=== PATIENT | male | born 1950 | race Caucasian/White ===

== ENCOUNTER 2017-03-10 18:01 | Emergency (ER) | payer OTHER ==
--- NOTE | 2017-03-10 18:27 | CPEKG ---
Heart Rate: 95 RR Interval: 632 P-R Interval: 140 QRSD Interval: 80 QT Interval: 336 QTC Interval: 423 P Oxford: 66 QRS Oxford: -12 T Wave Oxford: 40 EKG Severity - NORMAL ECG - EKG Impression: SINUS RHYTHM Electronically Signed By: Jefry Sutherland 10-Mar-2017 20:51:56
[2017-03-10 18:43] LABS: % IMMATURE GRANULYOCYTES 0.4 % (0.0-1.1); ABSOLUTE IMMATURE GRANULOCYTES 0.03 10^3/uL (0.00-0.10); ADD DIFF? NO; ADD MORPH? NO; ADD SCAN? NO; ATYPICAL LYMPHOCYTE FLAG 0 (0-99); FRAGMENT RBC FLAG 10 (0-99); HEMATOCRIT 43.5 % (40.0-51.0); HEMOGLOBIN 14.7 g/dL (13.7-17.5); LEFT SHIFT FLG 10 (0-99); LIPEMIA HEMOLYSIS FLAG 90 (0-99); MEAN CELL HEMOGLOBIN 30.4 pg (27.9-34.1); MEAN CELL HEMOGLOBIN CONCENTR. 33.8 g/dL (32.4-36.7); MEAN CELL VOLUME 90.1 fL (81.5-99.8); MEAN PLATELET VOLUME 9.7 fL (8.7-11.7); PLATELET CLUMPS FLAG 10 (0-99); PLATELET COUNT 254 10^3/uL (150-400); RED BLOOD CELL COUNT 4.83 10^6/uL (4.40-6.38); RED CELL DISTRIBUTION WIDTH 13.7 % (11.5-15.2)
[2017-03-10] MEDS ORDERED: NS 1,000 ML IV ONE (18:52)
[2017-03-10] MEDS ORDERED: DEXAMETHASONE 10 MG/ML VIAL IVP ONE (18:52)
[2017-03-10] MEDS ORDERED: HYDROmorphONE/DILAUDID 1 MG/ML SYR IVP ONE (18:52)
[2017-03-10] MEDS ORDERED: METOCLOPRAMIDE 10 MG/2 ML VIAL IVP ONE (18:52)
[2017-03-10 18:53] LABS: ANION GAP 16 mEq/L (8-16); CALCIUM 9.7 mg/dL (8.5-10.4); CARBON DIOXIDE 20 mEq/l (22-31); CHLORIDE 100 mEq/L (97-110); CREATININE 1.3 mg/dL (0.7-1.3); GLOMERULAR FILTRATION RATE 55; GLUCOSE 91 mg/dL (70-100); SODIUM 136 mEq/L (134-144)
--- NOTE | 2017-03-10 18:55 | EDPHY ---
H & P Stated Complaint: 5 days of chest discomfort/rome/fever body aches/being tx for tooth infection Time Seen by Provider: 03/10/17 18:42 HPI/ROS: CHIEF COMPLAINT: Headache HISTORY OF PRESENT ILLNESS: The patient is a 66-year-old man with history of migraines who states that he setting a severe left-sided headache to the point where his scalp and hair hurt and or tingling. He has had several of these before although they are not very often. The last 1 presented with a facial as well and he was sent at [facility] as a stroke alert. He had a negative CT and MRI that time. He also complains of some pain in his right eye. No vision changes. No photophobia. He has been on amoxicillin for 3 days for left upper left lower dental infections which he thinks exacerbating his symptoms. He feels generally weak and has not been sleeping. He does not have any focal weakness or deficits. No chest pain or shortness of breath. No fevers. REVIEW OF SYSTEMS: Constitutional: denies: chills, fever, recent illness, recent injury EENTM: denies: blurred vision, double vision, nose congestion Respiratory: denies: cough, shortness of breath Cardiac: denies: chest pain, irregular heart rate, lightheadedness, palpitations Gastrointestinal/Abdominal: denies: abdominal pain, diarrhea, nausea, vomiting, blood streaked stools Genitourinary: denies: dysuria, frequency, hematuria, pain Musculoskeletal: denies: joint pain, muscle pain Skin: denies: lesions, rash, jaundice, bruising Neurological: See HPI Hematologic/Lymphatic: denies: blood clots, easy bleeding, easy bruising Immunologic/allergic: denies: HIV/AIDS, transplant EXAM: GENERAL: Well-appearing, well-nourished and in no acute distress. HEAD: Atraumatic, normocephalic. EYES: Pupils equal round and reactive to light, extraocular movements intact, sclera anicteric, conjunctiva are normal. ENT: TMs normal, nares patent, oropharynx clear without exudates. Moist mucous membranes. NECK: Normal range of motion, supple without lymphadenopathy or JVD. LUNGS: Breath sounds clear to auscultation bilaterally and equal. No wheezes rales or rhonchi. HEART: Regular rate and rhythm without murmurs, rubs or gallops. ABDOMEN: Soft, nontender, normoactive bowel sounds. No guarding, no rebound. No masses appreciated. BACK: No CVA tenderness, no spinal tenderness, step-offs or deformities EXTREMITIES: Normal range of motion, no pitting or edema. No clubbing or cyanosis. NEUROLOGICAL: Cranial nerves II through XII grossly intact. Normal speech, normal gait. 5/5 strength, normal movement in all extremities, normal sensation PSYCH: Normal mood, normal affect. SKIN: Warm, dry, normal turgor, no visible rashes or lesions. Source: Patient Exam Limitations: No limitations - Personal History Current Tetanus/Diphtheria Vaccine: Unsure - Medical/Surgical History Hx Asthma: No Hx Chronic Respiratory Disease: No Hx Diabetes: No Hx Cardiac Disease: No Hx Renal Disease: No Hx Cirrhosis: No Hx Alcoholism: No Hx HIV/AIDS: No Hx Splenectomy or Spleen Trauma: No Other PMH: migraines - Family History Significant Family History: No pertinent family hx - Social History Smoking Status: Never smoked Alcohol Use: Sober Drug Use: None Constitutional: Initial Vital Signs Temperature (C) 37.2 C 03/10/17 18:09 Heart Rate 94 03/10/17 18:09 Respiratory Rate 18 03/10/17 18:09 Blood Pressure 136/80 H 03/10/17 18:09 O2 Sat (%) 98 03/10/17 18:09 O2 Delivery Mode Room Air O2 (L/minute) 3 Allergies/Adverse Reactions: No Known Allergies Allergy (Unverified 03/10/17 18:19) Home Medications: Medication Instructions Recorded AMOXICILLIN 03/10/17 Metoclopramide [Reglan 10 mg tab 10 mg PO BID PRN #10 tab 03/10/17 (RX)] Medical Decision Making - Diagnostics EKG Interpretation: An EKG obtained and was read and documented in trace view. Please see trace view for full reading and report. Sinus rhythm, no acute ischemic changes Imaging: Discussed imaging studies w/ supervisor park workers Radiologist ED Course/Re-evaluation: 8:30 p.m. the patient is feeling completely better. He is asking to go home. I will prescribe him Reglan. He is happy with this plan. He will follow up with his neurologist. He will continue taking his antibiotics follow up with his dentist. At triage the nursing staff noticed that he has a fever. Will treat him with Tylenol. He continues to states that he feels better and declines further workup. I do not think that he has meningitis. He has no neck stiffness. No altered mental status. I did offer to do a lumbar puncture and discussed the risks versus benefit. The patient declines and states he will return if he sits worse. He feels that his fever is likely due to his dental infection which is probably true. Differential Diagnosis: Partial list of the Differential diagnosis considered include but were not limited to; migraine, hemorrhage, dental infection and although unlikely based on the history and physical exam, I also considered trauma, infection, CVA. I discussed these differential diagnoses and the plan with the patient as well as the usual and expected course. The patient understands that the diagnosis is provisional and that in medicine we are not always correct and that further workup is often warranted. Usual and customary warnings were given. All of the patient's questions were answered. The patient was instructed to return to the emergency department should the symptoms at all worsen or return, otherwise to followup with the physician as we discussed. - Data Points Laboratory Results: Laboratory Results 03/10/17 18:30 03/10/17 18:30 Medications Given: Discontinued Medications Acetaminophen (Tylenol) 1,000 mg PO EDNOW ONE Stop: 03/10/17 20:35 Last Admin: 03/10/17 20:39 Dose: 1,000 mg Dexamethasone (Decadron Injection) 10 mg IVP EDNOW ONE Stop: 03/10/17 18:53 Last Admin: 03/10/17 19:04 Dose: 10 mg Diphenhydramine HCl (Benadryl Injection) 25 mg IVP EDNOW ONE Stop: 03/10/17 18:53 Last Admin: 03/10/17 19:04 Dose: 25 mg Hydromorphone HCl (Dilaudid) 1 mg IVP EDNOW ONE Stop: 03/10/17 18:53 Last Admin: 03/10/17 19:04 Dose: 1 mg Sodium Chloride (Ns) 1,000 mls @ 0 mls/hr IV ONCE ONE; Wide Open PRN Reason: Protocol Stop: 03/10/17 18:53 Last Admin: 03/10/17 19:04 Dose: 1,000 mls Metoclopramide HCl (Reglan Injection) 10 mg IVP EDNOW ONE Stop: 03/10/17 18:53 Last Admin: 03/10/17 19:04 Dose: 10 mg Departure - Departure Disposition: Home, Routine, Self-Care Clinical Impression: Fever Qualifiers: Fever type: unspecified Qualified Code(s): R50.9 - Fever, unspecified Migraine Qualifiers: Migraine type: unspecified Status migrainosus presence: without status migrainosus Intractability: not intractable Qualified Code(s): G43.909 - Migraine, unspecified, not intractable, without status migrainosus Condition: Fair Instructions: Migraine Headache (ED) Referrals: MD RULA NOT SURE [Other] - As per Instructions Prescriptions: Metoclopramide [Reglan 10 mg tab (RX)] 10 mg PO BID PRN #10 tab PRN Reason: Headache
[2017-03-10 19:04] LABS: TROPONIN I < 0.012 ng/mL (0-0.034)
[2017-03-10 19:11] LABS: INR 1.08 (0.83-1.16); PROTIME(PATIENT) 13.9 SEC (12.0-15.0)
[2017-03-10] MEDS ORDERED: ACETAMINOPHEN 500 MG TAB PO ONE (20:34)
[2017-03-10 20:39] VITALS: BP 113/69; PULSE 94; RESP 14; O2SAT 95
[2017-03-10 21:02] VITALS: TEMP 99
== END 2017-03-10 21:01 | disposition home or self-care (01) ==
DX: G43.909 Migraine, unspecified, not intractable, without status migrainosus (principal); R50.9 Fever, unspecified; E86.9 Volume depletion, unspecified; R07.9 Chest pain, unspecified
CPT/HCPCS: 70450; 93005; 96361; 96374; 96375; 99285; J1100; J1170; J1200; J2765